=== PATIENT | female | born 1955 | race American Indian/Alaskan Native ===

== ENCOUNTER 2016-06-08 12:55 | Outpatient (CLI) | payer MEDICARE ==
[2016-06-08 13:12] LABS: Hematocrit 33.5 % (30.3-42.9); Hemoglobin 10.6 gm/dl (10.1-14.3); Mean Corpuscular HGB Conc 32 % (30-34); Mean Corpuscular Volume 80 fl (79-97); Platelet Count 198 K/mm3 (140-440); Red Blood Count 4.21 M/mm3 (3.65-5.03); Red Cell Distribution Width 13.8 % (13.2-15.2); White Blood Count 7.5 K/mm3 (4.5-11.0)
[2016-06-08 13:15] LABS: Mean Corpuscular Hemoglobin 25 pg (28-32)
[2016-06-08 13:25] LABS: Bacteria,Urine 1+ /HPF (Negative); Bilirubin,Urine NEG (Negative); Blood,Urine SM (Negative); Ketones,Urine NEG (Negative); Leukocyte Esterase,Urine NEG (Negative); Mucus,Urine FEW /HPF; Nitrite,Urine NEG (Negative); Urobilinogen,Urine < 2.0 mg/dL (<2.0)
[2016-06-08 13:26] LABS: Protein,Urine >500 mg/dL (Negative)
[2016-06-08 13:32] LABS: Albumin 3.2 g/dL (3.9-5); BUN/Creatinine Ratio 16.15; Calcium 8.7 mg/dL (8.4-10.2); Chloride 105.7 mmol/L (98-107); Phosphorous 4.6 mg/dL (2.5-4.5); Potassium 4.9 mmol/L (3.6-5.0)
== END 2016-06-08 12:56 | disposition home or self-care (01) ==
LOC: LAB 12:55
PROVIDERS: ATTEND Internal Medicine Nephrology
DX: I12.9 Hypertensive chronic kidney disease with stage 1 through stage 4 chronic kidney disease, or unspecified chronic kidney disease (principal); N18.4 Chronic kidney disease, stage 4 (severe); R94.4 Abnormal results of kidney function studies; E08.29 Diabetes mellitus due to underlying condition with other diabetic kidney complication; N25.81 Secondary hyperparathyroidism of renal origin; E78.5 Hyperlipidemia, unspecified; E55.9 Vitamin D deficiency, unspecified; E87.2 Acidosis; R60.9 Edema, unspecified; R80.9 Proteinuria, unspecified
CPT/HCPCS: 36415; 80048; 81001; 82040; 82570; 84100; 84156; 85027

== ENCOUNTER 2016-06-29 07:26 | Day surgery (SDC) | payer MEDICARE ==
--- NOTE | 2016-06-28 12:31 | Anesthesia Consultation ---
Anesthesia Consult and Med Hx Date of service: 06/29/16 - Airway Anesthetic Teeth Evaluation: Dentures ROM Head & Neck: Adequate Mental/Hyoid Distance: Adequate Mallampati Class: Class II Intubation Access Assessment: Probably Good - Pre-Operative Health Status ASA Pre-Surgery Classification: ASA3 Proposed Anesthetic Plan: General, MAC - Pulmonary Hx Smoking: Yes - Cardiovascular System Hx Hypertension: Yes (4YRS) - Endocrine Hx End Stage Renal Disease: Yes (Not presently on dialysis) Hx Insulin Dependent Diabetes: Yes - Hematic Hx Anemia: Yes - Additional Comments Anesthesia Medical History Comments: hypercholesterolemia
--- NOTE | 2016-06-29 07:01 | Anesthesia Day of Surgery ---
Anesthesia Day of Surgery - Day of Surgery Patient Examined: Yes Patient H&P Reviewed: Yes Patient is NPO: Yes
[~2016-06-29 07:26] MED LIST: ANCEF/STERILE WATER 2 GM/20 ML 2 GM/20 ML SYRINGE IV NR; DECADRON ONE; DILAUDID IV PRN; DILAUDID ONE; DIPRIVAN 10 MG/ML IV ONE; NACL 0.9% 1000 ML 1,000 ML IV SCH; NORCO 5/325 PO PRN; PEPCID IV NR; VERSED IV NR; XYLOCAINE MPF 2% ONE; ZOFRAN IV PRN; ZOFRAN ONE
[2016-06-29] MEDS ORDERED: NACL BACTERIOSTATIC INFILTRATI ONE (07:29)
[2016-06-29] MEDS ORDERED: VERSED IV NR (08:00)
[2016-06-29] MEDS ORDERED: PEPCID IV NR (08:00)
--- NOTE | 2016-06-29 10:08 | Event Note ---
Date: 06/29/16 The patient was seen and evaluated in my office yesterday. She is in need of urgent dialysis access and is scheduled for creation at [facility].
[2016-06-29] MEDS ORDERED: ePHEDrine SULFATE ONE (10:24)
[2016-06-29] MEDS ORDERED: MARCAINE 0.5% INFILTRATI ONE (10:56)
[2016-06-29] MEDS ORDERED: NACL 0.9% IR ONE (10:56)
[2016-06-29] MEDS ORDERED: XYLOCAINE 1%/ EPI 1:100,000 INFILTRATI ONE ×2 (10:56)
[2016-06-29] MEDS ORDERED: HEPARIN 10,000 UNITS/10 ML 1,000 UNIT in NACL 0.9% 250ML 250 ML IR ONE (10:56)
--- NOTE | 2016-06-29 11:29 | Short Stay Summary ---
Short Stay Documentation Date of service: 06/29/16 Narrative H&P: See H&P - History H&P: obtained from office - Allergies and Medications Current Medications: Allergies No Known Allergies Allergy (Unverified 03/10/15 11:12) Home Medications Medication Instructions Recorded Confirmed Last Taken Type Bumetanide [Bumetanide] 2 mg PO BID 06/24/16 06/29/16 06/28/16 History Carvedilol [Carvedilol] 6.25 mg PO BID 06/24/16 06/29/16 06/29/16 History Clonidine HCl [Clonidine HCl] 0.2 mg PO TID 06/24/16 06/29/16 06/29/16 History Docusate Sodium [Docusate Sodium] 100 mg PO QDAY 06/24/16 06/29/16 06/28/16 History Ferrous Sulfate [Ferrous Sulfate] 325 mg PO BID 06/24/16 06/29/16 06/27/16 History Insulin Detemir [Levemir] 20 units SQ HS 06/24/16 06/29/16 06/28/16 History Mv,Ca,Min/Iron Fum/FA/Lyco/Lut 1 each PO QDAY 06/24/16 06/29/16 06/28/16 History [Complete Multi Tablet] Simvastatin [Simvastatin] 20 mg PO QDAY 06/24/16 06/29/16 06/28/16 History Tramadol HCl [traMADol] 50 mg PO QDAY 06/24/16 06/29/16 06/28/16 History glipiZIDE [Glipizide] 10 mg PO BID 06/24/16 06/29/16 06/28/16 History Active Medications Acetaminophen/Hydrocodone Bitart ([place] 5/325) 2 each PO ONCE PRN PRN Reason: Pain, Moderate (4-6) Stop: 06/29/16 16:00 Famotidine (Pepcid) 20 mg IV PREOP NR Stop: 06/29/16 23:59 Last Admin: 06/29/16 10:05 Dose: 20 mg Hydromorphone HCl (Dilaudid) 0.5 mg IV Q10MIN PRN PRN Reason: Pain , Severe (7-10) Stop: 06/29/16 16:00 Cefazolin Sodium (Ancef/Sterile Water 2 Gm/20 Ml) 2 gm in 20 mls @ 80 mls/hr IV PREOP NR PRN Reason: Protocol Stop: 06/29/16 23:59 Sodium Chloride (Nacl 0.9% 1000 Ml) 1,000 mls @ 42 mls/hr IV DIRECT NAILA Last Admin: 06/29/16 07:55 Dose: 42 mls/hr Midazolam HCl (Versed) 2 mg IV PREOP NR Stop: 06/29/16 23:59 Last Admin: 06/29/16 10:07 Dose: 2 mg Ondansetron HCl (Zofran) 4 mg IV ONCE PRN PRN Reason: Nausea And Vomiting Stop: 06/29/16 16:00 - Brief post op/procedure progress note Date of procedure: 06/29/16 Pre-op diagnosis: Chronic Renal Failure Post-op diagnosis: same Procedure: Creation of Left Brachiocephalic AV Fistula Anesthesia: ASH Surgeon: CARTER LEZAMA Estimated blood loss: minimal Pathology: none Condition: stable - Disposition Condition at discharge: Good Disposition: DISCHARGED TO HOME OR SELFCARE Short Stay Discharge Plan Activity: other (No heavy lifting with left arm) Wound: open to air, keep clean and dry, other (Okay to wash the wound with soap and water but do not soak in water) Follow up with: ABBIE SCHMIDT MD [Staff Physician] - 14 Days (Follow up with Dr Carter Lezama in 2 weeks) Prescriptions: HYDROcodone/APAP 7.5-325 [[place] 7.5/325] 1 each PO Q6HR PRN #50 tablet PRN Reason: Pain
--- NOTE | 2016-06-29 11:40 | Operative Report ---
Operative Report Operative Report: Date of procedure: 06/29/2016 Pre-operative diagnosis: End-Stage Renal Disease Post-operative diagnosis: End-Stage Renal Disease Procedure(s): Creation of Left Brachial Artery to Cephalic Vein Arteriovenous Fistula Surgeon: Carter Lezama MD Cna Per Diem: None Anesthesia: Gen. endotracheal anesthesia EBL: Minimal Counts: Correct Complications: None Condition: Stable Findings: Successful creation of left brachiocephalic arteriovenous fistula with excellent thrill and palpable radial pulse in the case. Specimen: None Indications: The patient is a 61-year-old female with history of chronic renal sufficiency who will need hemodialysis in the near future. Her vein size and demonstrated she was an adequate patient for creation of AV fistula. Because she will soon require dialysis was felt that she needed urgent creation of a fistula to prevent the need of a permacath. She was given the risks, benefits, and alternative procedures and consented to procedure. Description of Procedure: The patient was brought to the operating room and laid in supine position after general endotracheal anesthesia was administered the patient was prepped and draped in normal sterile fashion. After anesthetizing the skin a transverse incision was created just below the antecubital crease. Dissection was carried down to the the cephalic vein using sharp dissection. The vein was dissected out both proximally and distally and suture ligated and divided distally. I then ran a 3 Barb proximally in the vein, to ensure patency of the vein. Then flushed the vein with heparinized saline and flow was controlled with a bulldog clamp. I then dissected out the brachial artery through this incision circumferentially both proximal and distal and controlled the artery with vessel loops. I then placed the vessel loops on tension controlling the flow through the artery and created an arteriotomy using an 11 blade and Govea scissors. I created an end to side anastomosis between the cephalic vein and brachial artery using a 6-0 Prolene in running fashion. Prior to completing the anastomosis I flushed the artery both proximally and distally and then advanced a 3 Barb proximally to break the spasm in the artery. I then completed the anastomosis and removed all vessel loops allowing flow into the fistula which had an excellent thrill. I achieved hemostasis with a combination of direct pressure and electrocautery. Once hemostasis was achieved I anesthetized the wound with Marcaine. I then closed the wound in 2 layers and 3-0 Vicryl in a running fashion to close the deep dermal layer and 4- 0 Monocryl in a running fashion in the subcuticular layer. I dressed the wound with Surgicel. The patient tolerated the procedure well, all sponge needle and instrument counts were correct. The patient was taken to recovery in stable condition.
--- NOTE | 2016-06-29 12:31 | Post Anesthesia Evaluation ---
- Post Anesthesia Evaluation Patient Participated: Yes Airway Patent: Yes Stable Respiratory Function: Yes Temp > 96.8F: Yes Pain Manageable: Yes Adequeate Hydration: Yes Anesthesia Complications: No Block Receding Appropriately: Not Applicable
[2016-06-29 13:04] VITALS: BP 144/70
--- NOTE | 2016-06-30 01:35 | Admit Criteria Form ---
Admission Criteria Documentation: AMBULATORY SURGERY EXCEPTION CRITERIA Ambulatory Surgery Exception Criteria ( Place 'X' for any and all applicable criteria): Surgery or procedure performed on ambulatory basis may require inpatient stay for[A] ANY ONE of the following(1)(2)(3)(4)(5)(6)(7)(8)(9): [X] I. A preoperative situation, condition, or finding that warrants inpatient stay as indicated by ANY ONE of the following: [] a) Inpatient care needed because of severity of a disease or condition rather than the surgery (eg, severe cardiac or respiratory disease, severe infection) (15) (16 ) (17) (18) [] b) Emergent procedure (eg, angioplasty for acute ischemia)(19) [] c) Complex surgical approach or situation as indicated by ANY ONE of the following(3): [] i) Open approach needed instead of usual endoscopic, transcatheter, or other less invasive procedure [] ii) Difficult approach because of previous operation [] iii) Airway monitoring required after open neck procedures(20)(21) [] iv) Large mass requiring unusually extensive dissection [] v) Additional complicating feature requiring inpatient care (eg, drain management)(22(23): [X] d) Major surgery in a pt with high anesthetic risk as indicated by ANY ONE of the following (2)(3)(5)(7)(8): [X] i) ASA risk class III or higher (severe systemic disease impairing function) [D] [] ii) Advanced age (eg, older than 85 years)(14)(24) [] iii) Symptomatic heart failure(25) [] iv) Symptomatic asthma or COPD(8)(21) [] v) Morbid obesity with hemodynamic or respiratory problems(20)( 21)(26)(27) [] vi) Obstructive sleep apnea(20)(21) [] vii) Former premature infants who are younger than 60 weeks [] viii) High risk for severe postoperative abnormalities (eg, severe postoperative hypocalcemia after parathyroidectomy for severe hyperparathyroidism)(27)( 28) [] ix) Unstable angina(25) [] e) Drug-related risk requiring inpatient stay as indicated by ANY ONE of the following(5)(10)(14)(32)(33) [] i) Procedure requires discontinuing drugs or other therapy (eg , antiarrhythmic medication, antiseizure medication), which necessitates inpatient observation or treatment.(18)(31) [] ii) Major surgery and high risk drug use as indicated by ANY ONE of the following: [] 1) Active abuse of cocaine or similar drug [] 2) Monoamine oxidase inhibitor use [] 3) Other drug identified as posing risk [] f) Inadequate outpatient care situation as indicated by ANY ONE of the following(5)(10)(14)(32)(33) [] i) Patient lives remote from medical facility and procedure has urgent complication potential, and temporary nearby residence cannot be arranged [] ii) Patient will have postprocedure incapacitation and inadequate assistance at home, or alternative level of care cannot be arranged. [] iii) Patient will have long general anesthesia or procedure side effect resolution time, and competent person to stay with patient on first postoperative night at home or alternative level of care cannot be arranged. []iv) Other inadequate outpatient situation that cannot be handled by other means [] II. A perioperative event, condition, or finding that warrants inpatient stay as indicated by ANY ONE of the following (1)(2)(3): [] a) Inadequate physiologic recovery: cardiovascular, respiratory, or hemodynamic status not normal or near preoperative baseline(18) [] b) Hemodynamic instability [] c) Patient not alert with near normal or baseline mental status [] d) Temperature not normal or as expected and not appropriate for outpatient treatment of condition [] e) Ambulatory or appropriate activity level status not yet achieved post procedure [E](34)(35)(36) [] f) Operative site not appropriate (eg, unexpected or excessive drainage or bleeding) [] g) Postoperative effects not resolved or adequately managed (eg, significant pain or vomiting not appropriate for outpatient or next level of care)(10)(12) [] h) Complicating features requiring inpatient care as indicated by ANY ONE of the following(37): [] i) Severe complications of procedure (eg, bowel injury, airway compromise, vascular injury,severe hemorrhage) [] ii) Extensive (eg, dissection far beyond usual scope of procedure ) or prolonged (eg, 120 minutes beyond usual) surgery needed requiring inpatient postoperative care [] iii) Conversion to an open or complex procedure that requires inpatient care (eg, open vs laparoscopic cholecystectomy, abdominal vs vaginal hysterectomy)(38) [] iv) Comorbid condition or test result identified during or post procedure that requires inpatient care (7) [] v) Malignant hyperthermia(30) [] vi) Other complicating feature requiring inpatient care(22)(23) Inpatient stay may be needed until ALL of the following are present (1)(2)(3)(4) (5)(6)(10)(14)(33)(40): []a) Physiologic recovery: cardiovascular, respiratory, and hemodynamic status normal or near preoperative baseline []b) Hemodynamic stability []c) Patient alert, with near normal or baseline mental status []d) Temperature appropriate: patient afebrile or temperature appropriate for outpt treatment of condition []e) Activity level appropriate: ambulatory or appropriate activity level post procedure []f) Operative site appropriate as indicated by ALL of the following: []i) Site dry or with expected drainage []ii) Any blood noted is as expected for procedure. []g) Postoperative effects resolved or managed as indicated by ALL of the following: []i) Pain management appropriate for outpatient (or next level of) care(10) []ii) Minimal nausea and vomiting: if present, successfully treated with oral medication(12) []iii) Headache, dizziness, or drowsiness (if present) are mild. []h) Voiding status acceptable as indicated by ANY ONE of the following: []i) Voiding spontaneously []ii) No voiding but instructions given for follow-up in 6 to 8 hours []iii) Urinary catheter in place, and instructions given for follow-up []i) Complicating features requiring inpatient care manageable at a lower level of care(37) []j) Comorbid conditions manageable at a lower level of care(37) The original [employer] content created by [employer] has been revised. The portions of the content which have been revised are identified through the use of italic text or in bold, and [facility] has neither reviewed nor approved the modified material. All other unmodified content is copyright [employer]. Please see references footnoted in the original [employer] edition 2016 Admission Criteria Met: Yes
== END 2016-06-29 13:00 | disposition home or self-care (01) ==
LOC: OR 07:26
PROVIDERS: ATTEND Surgery Vascular Surgery
DX: I12.0 Hypertensive chronic kidney disease with stage 5 chronic kidney disease or end stage renal disease (principal); E11.22 Type 2 diabetes mellitus with diabetic chronic kidney disease; N18.6 End stage renal disease; D64.9 Anemia, unspecified; E78.00 Pure hypercholesterolemia, unspecified; Z98.51 Tubal ligation status; Z83.3 Family history of diabetes mellitus; Z87.891 Personal history of nicotine dependence
CPT/HCPCS: 36415; 36818; 82962; 84132; J0690; J1100; J1170; J1644; J2250; J2405; J2704; J7030; J7050

== ENCOUNTER 2016-08-05 06:18 | Day surgery (SDC) | payer MEDICARE ==
[~2016-08-05 06:18] MED LIST changes: -DECADRON ONE; -DILAUDID IV PRN; -DILAUDID ONE; -DIPRIVAN 10 MG/ML IV ONE; -NACL 0.9% 1000 ML 1,000 ML IV SCH; -NORCO 5/325 PO PRN; -PEPCID IV NR; -VERSED IV NR; -XYLOCAINE MPF 2% ONE; -ZOFRAN IV PRN; -ZOFRAN ONE
[2016-08-05] MEDS ORDERED: HEPARIN/NS 5000 UNIT/500ML(CATH LAB) 500 ML IR ONE (08:24)
[2016-08-05] MEDS ORDERED: ANCEF/STERILE WATER 2 GM/20 ML 2 GM/20 ML SYRINGE IV ONE (08:25)
[2016-08-05] MEDS ORDERED: NACL 0.9% 250ML 250 ML ONE (08:26)
[2016-08-05] MEDS: SUBLIMAZE ONE ×2 (09:18→09:21)
[2016-08-05] MEDS: VERSED ONE ×2 (09:18→09:30)
[2016-08-05] MEDS: XYLOCAINE 2% INFILTRATI ONE ×2 (09:22→09:28)
[2016-08-05] MEDS: HEPARIN 10,000 UNITS/10 ML ONE ×4 (09:24→09:33)
--- NOTE | 2016-08-05 09:58 | Short Stay Summary ---
Short Stay Documentation Date of service: 08/05/16 Narrative H&P: 61 year old female with ESRD with AVF creation but needs dialysis before the AVF will be ready for access. Sent for permcath placement. - History Principal diagnosis: ESRD Past Medical History: dialysis Past Surgical History: Other (AVF creation) - Allergies and Medications Current Medications: Allergies No Known Allergies Allergy (Verified 08/05/16 06:45) Home Medications Medication Instructions Recorded Confirmed Last Taken Type Bumetanide 2 mg PO BID 06/24/16 08/05/16 08/04/16 History Carvedilol 6.25 mg PO BID 06/24/16 08/05/16 08/04/16 History Clonidine HCl 0.2 mg PO TID 06/24/16 08/05/16 08/04/16 History Docusate Sodium 100 mg PO QDAY 06/24/16 08/05/16 08/04/16 History Ferrous Sulfate 325 mg PO BID 06/24/16 08/05/16 08/04/16 History Insulin Detemir [Levemir] 20 units SQ HS 06/24/16 08/05/16 08/04/16 History Mv,Ca,Min/Iron Fum/FA/Lyco/Lut 1 each PO QDAY 06/24/16 08/05/16 08/04/16 History [Complete Multi Tablet] Simvastatin 20 mg PO QDAY 06/24/16 08/05/16 08/04/16 History Tramadol HCl [traMADol] 50 mg PO QDAY 06/24/16 08/05/16 08/04/16 History glipiZIDE [Glipizide] 10 mg PO BID 06/24/16 08/05/16 08/04/16 History HYDROcodone/APAP 7.5-325 [[facility] 1 each PO Q6HR PRN #50 tablet 06/29/16 08/05/16 Unknown Rx 7.5/325] Aspirin [Adult Low Dose Aspirin EC] 81 mg PO DAILY 08/05/16 08/05/16 1 Month Ago History Active Medications Cefazolin Sodium (Ancef/Sterile Water 2 Gm/20 Ml) 2 gm in 20 mls @ 80 mls/hr IV PREOP NR PRN Reason: Protocol Stop: 08/05/16 23:59 Last Admin: 08/05/16 09:15 Dose: 20 mls - Physical exam General appearance: no acute distress Lungs: Normal air movement - Brief post op/procedure progress note Date of procedure: 08/05/16 Pre-op diagnosis: ESRD Post-op diagnosis: same Procedure: permcath Anesthesia: local (w/ conscious sedation) Surgeon: BONNIE BARKLEY Estimated blood loss: minimal Condition: stable - Hospital course Hospital course: Placed pressure dressing on right neck. Told patient she can remove it in 6 hrs. - Disposition Condition at discharge: Stable Disposition: DISCHARGED TO HOME OR SELFCARE - Discharge Diagnoses (1) ESRD needing dialysis Status: Acute Short Stay Discharge Plan Activity: advance as tolerated Weight Bearing Status: Weight Bear as Tolerated Diet: renal Wound: keep clean and dry, other (DO NOT get catheter wet ; cannot take showers ; must take sponge baths) Follow up with: CARLOS CORRIGAN MD [Primary Care Provider] - 7 Days
--- NOTE | 2016-08-05 10:01 | Operative Report ---
Operative Report Operative Report: EXAM: 1. Ultrasound-guided puncture of the right internal jugular vein 2. Fluoroscopic-guided placement of a right internal jugular tunneled cuffed hemodialysis catheter. DATE: 08/05/16 INDICATION: End-stage renal disease requiring hemodialysis access. MEDICATIONS: Please see nursing report for full details. DEVICES: 23 cm tip to cuff 15 Fr dual lumen hemodialysis catheter LOADER: BONNIE BARKLEY MD CONTRAST: None PROCEDURE: The risks, benefits, and alternatives were discussed and informed consent was obtained. The patient was transported to the angiography suite in satisfactory/ stable condition and was transported onto the angiography table. The patient's right internal jugular vein was assessed with ultrasound and determined to be patent prior to procedure. The patient was prepped and draped in a sterile fashion. The puncture site was anesthetized. Under sonographic guidance, the right internal jugular vein was punctured with a 21-gauge micropuncture needle and a 0.018 inch wire was advanced into the inferior vena cava. The micropuncture needle was exchanged for a transitional dilator and the wire was retracted into the right atrium to donte intravascular distance. The wire and inner dilator were removed. 0.035 inch wire was advanced through the transitional dilator into the inferior vena cava. A suitable exit site was identified on the patient's chest inferior and lateral to the venotomy. The site was anesthetized with local anesthetic and the track was anesthetized. Dermatotomy was made. The PermCath was attached to the tunneling device and tunneled between the dermatotomy to the venotomy. Over the 0.035 inch wire, serial dilatation was performed with ultimate placement of a peel-away sheath. The catheter was advanced through the peel- away sheath after the wire was removed and positioned centrally under fluoroscopic guidance. The peel-away sheath was removed. 3-0 Vicryl suture was used to close the venotomy and Dermabond was then applied. 2-0 Ethilon suture was used to secure the catheter at the dermatotomy. The catheter was charged with heparin 1000 units per mL of space. Sterile dressing applied. Pressure dressing applied to the right internal jugular puncture site which had been closed with Dermabond. Patient was instructed to remove this dressing and 6 hours after procedure. The patient was transferred from the angiography suite back to the recovery room in stable condition. FINDINGS: 1. Excellent flow was obtained through the dialysis catheter with 20 mL syringes. 2. The catheter tip is in the right atrium. IMPRESSION: 1. Successful ultrasound and fluoroscopically guided placement of a right internal jugular tunneled cuffed hemodialysis catheter.
[2016-08-05] MEDS ORDERED: ZOFRAN IV ONE (10:33)
[2016-08-05] MEDS ORDERED: NORCO 5/325 ONE (11:03)
[2016-08-05] MEDS ORDERED: NORCO 5/325 PO PRN (11:04)
[2016-08-05 12:05] VITALS: BP 151/65
--- NOTE | 2016-08-06 07:45 | Vascular Lab Report ---
MISCELLANEOUS VESSEL IDENTIFICATION: COMMENTS ON THE SCAN: The right internal jugular vein was identified and under real-time ultrasound guidance was cannulated. IMPRESSION: Successful ultrasound guided vein cannulation.
== END 2016-08-05 12:45 | disposition home or self-care (01) ==
LOC: OPU 06:18
PROVIDERS: ATTEND Radiology Diagnostic Radiology
DX: E11.22 Type 2 diabetes mellitus with diabetic chronic kidney disease (principal); I12.0 Hypertensive chronic kidney disease with stage 5 chronic kidney disease or end stage renal disease; N18.6 End stage renal disease; E78.00 Pure hypercholesterolemia, unspecified; F17.210 Nicotine dependence, cigarettes, uncomplicated; Z83.3 Family history of diabetes mellitus; Z79.4 Long term (current) use of insulin; Z79.899 Other long term (current) drug therapy; Z99.2 Dependence on renal dialysis; Z98.51 Tubal ligation status
CPT/HCPCS: 36415; 36558; 76937; 77001; 82962; 84132; 85610; 85730; 96374; C1750; J0690; J1644; J2250; J2405; J3010; J7050